=== PATIENT | female | born 1980 | race Caucasian/White ===

== ENCOUNTER 2024-06-07 11:50 | Emergency (ER) | payer OTHER, SELFPAY ==
[2024-06-07 11:51] VITALS: BP 148/104
[2024-06-07 12:17] LABS: % Basophils 0.8 % (0-2); % Eosinophils 2.1 % (0-6); % Immature Granulocytes 0.2 % (0-0.5); % Lymphocytes 22.8 % (20.5-51.1); % Monocytes 7.8 % (1.7-9.3); % Neutrophils 66.3 % (42.2-75.2); Absolute Eosinophils 0.1 10^3/uL (0-0.7); Absolute Lymphocytes 1.2 10^3/uL (1.2-3.4); Absolute Monocytes 0.4 10^3/uL (0.1-0.6); Absolute Neutrophils 3.4 10^3/uL (1.4-6.5); Hematocrit 42.8 % (37.0-47.0); Hemoglobin 15.4 g/dL (12.0-16.0); Mean Corpuscular Hgb 30.3 pg (27.0-31.0); Mean Corpuscular Volume 84.1 fL (81.0-99.0); Mean Platelet Volume 9.5 fL (7.4-10.4); Nucleated Red Blood Cells % 0 %; Platelet Count 261 10^3/uL (130-400); Red Blood Cell Count 5.09 10^6/uL (4.20-5.40); Red Cell Dist. Width 12.5 % (11.5-14.5); White Blood Cell Count 5.1 10^3/uL (4.8-10.8)
--- NOTE | 2024-06-07 12:41 | ED.GENMED ---
History of Present Illness
General
Chief Complaint: Eye Problems
Source: patient
Exam Limitations: none
Time Seen by Provider: 06/07/24 12:30
History of Present Illness
History of Present Illness:
See MDM
Past History
Past History
ED Past Medical History: None; Negative Asthma, HTN, Hypercholesterolemia or NIDDM
ED Past Surgical History: Appendectomy and Gynecological (Tubel)
Social History
Tobacco: Smoker
Alcohol: None
Personal: Single
Living: with family
Phy Exam
Physical Exam
Physical Exam:
See MDM
Course
Orders/Labs/Results
Orders:
Orders
06/07/24 11:57
Electrocardiogram (*1) Urgent
Reason for Study: Shortness of Breath
EKG- Treatment ONCE
Test Result ONCE
06/07/24 12:05
Complete Blood Count/With Diff Urgent
Comprehensive Metabolic Panel Urgent
HCG, Serum Qualitative Screen Urgent
NT-proBNP Urgent
TSH Reflex To Free T4 Urgent
Troponin I Urgent
06/07/24 12:40
Visual Acuity- Treatment ONCE
06/07/24 12:41
CT Head W/o Iv Contrast Urgent
Comment:
Reason For Exam: headache
06/07/24 12:53
Ketorolac [Toradol] 30 mg IM NOW STA
Abnormal Lab Results
06/07/24
12:05
Carbon Dioxide 21 L mmol/L
(22-30)
Glucose 124 H mg/dl
(70-99)
06/07/24 12:05
06/07/24 12:05
Vital Signs
Initial and Last Documented VS:
Initial Vital Signs
Temp Pulse Resp BP Pulse Ox
98.2 F 115 16 148/104 98
06/07/24 11:51 06/07/24 11:51 06/07/24 11:51 06/07/24 11:51 06/07/24 11:51
Last Documented Vital Signs
Temp Pulse Resp BP Pulse Ox
98.2 F 115 16 148/104 98
06/07/24 11:51 06/07/24 11:51 06/07/24 11:51 06/07/24 11:51 06/07/24 11:51
MDM/Problems Addressed
Differential Diagnosis Includes:
HPI and MDM Narrative:
43-year-old female presenting for evaluation of headaches and visual complaints. Patient states this has been going on since Friday. She is denying blurry vision. When I asked her what her concern about her vision is, she responds 'my vision is
too vivid'. Patient states she can see things to clearly. Patient does seem visibly upset. She believes that there is something wrong. Patient does have a history of migraines but denies visual issues with it. Will obtain visual acuity but
pupils appear equal and reactive. Conjunctiva appears injected but she is rubbing her eyes. Will obtain CT head given her complaints and will obtain basic blood work. Patient does acknowledge that she wanted to make sure she is not having a
stroke or something catastrophic
Physical exam
General: Well appearing and non-toxic
HEENT: protecting airway. Pupils are equal and reactive. EOMI. Sclera injected bilaterally
Neck: supple
CV: No evidence of cyanosis
Resp: No accessory muscle use
Abd: Non-distended. Soft and nontender
Extremities: No deformities. No leg edema noted
Neuro: alert
Psych: anxious and upset
Skin: Intact
Problems Addressed including Acute and Chronic Conditions affecting care:
1. Headache
Acuity: acute
Prognosis: stable
Details: Will obtain CT head and give Toradol
2. Visual complaint
Acuity: acute
Prognosis: stable
Details: Will obtain visual acuity
Updates
1:15 PM nursing indicating that vision is 20/[address] head negative. Blood work negative. Discussed having her symptoms further evaluated by her primary care
Differential Diagnosis (but not limited to): Complicated migraine, conjunctivitis, hypothyroidism
Testing considered: Urinalysis
Drug therapy (if applicable): OTC meds, please see d/c instruction regarding Rx drugs
Amount and/or Complexity of Data Reviewed
Clinical info obtained from: Patient
External data reviewed: N/A
Labs I independently reviewed (but not limited to): White blood cell count normal
Radiology: The CT scan was personally and independently reviewed. In addition, official CT report reviewed.
Pulse Ox: not hypoxic
EKG independently reviewed: N/A
Balance Staff Staker: N/A
Critical Care: N/A
Risk of Complication:
Social Determinants of health: Good social support
Discussed with other providers: N/A
Escalation of Care includes Admit/Obs: After being observed in the Emergency Department, pt stable for discharge.
Occasional wrong word or 'sound a like' substitutions may have occurred due to the inherent limitations of voice recognition software. Read the chart carefully and recognize, using context, where substitutions have occurred.
*Critical Care Note
Total Time (30-74mins, 75-104mins- exclusive of procedures): Not Applicable
ED Attending Note
-
Portions of this chart may have been created with voice recognition software.� Occasional wrong word or��sound alike� substitutions may have occurred due to the inherent limitations of voice recognition software.
Discharge Plan
Departure
Patient Disposition: Home (Routine Discharge)
Date of Disposition: 06/07/24
Time of Disposition: 15:01
Patient with high blood pressure during this ER visit?: Yes
Discharge Problem:
Headache
Instructions: BLOOD PRESSURE
Prescriptions:
New
mnakmjkyrp-[id number] [Fioricet] 50-300-40 mg capsule
1 cap PO TID PRN (Reason: headache) Qty: 10 0RF
No Action
aspirin 325 MG tablet
650 mg PO Q6H
cefuroxime axetil 500 MG tablet
500 mg PO BID Qty: 20 0RF
Referrals:
Yumiko Melendez PA [Family Provider] -
Activity Restrictions/Additional Instructions:
Please return for any worsening symptoms.
You may return at any time if you have further concerns.
Please follow up with your doctor at the first available appointment, preferably this week.
Please make an appointment to see the bilingual legal assistant.
Thank you for choosing [facility].
Interventions
Interventions:
*Risk Screen - Suicide Last Done: 06/07/24 11:51
*Neglect/Abuse Screening Last Done: 06/07/24 11:51
Discharge Date and Time
Print Language: CHINESE
[2024-06-07 12:44] LABS: HCG, Serum Qualitative Screen Negative; NT-proBNP < 20.0 pg/ml; Troponin I < 0.012 ng/ml
[2024-06-07 12:45] LABS: ALT (SGPT) 17 U/L (0-35); AST (SGOT) 23 U/L (14-36); Albumin 4.8 g/dl (3.5-5.0); Alkaline Phosphatase 61 U/L (38-126); Blood Urea Nitrogen 17 mg/dl (7-17); Calcium 9.8 mg/dl (8.4-10.2); Carbon Dioxide 21 mmol/L (22-30); Chloride 104 mmol/L (98-107); Glucose 124 mg/dl (70-99); Potassium 3.7 mmol/L (3.5-5.1); Sodium 139 mmol/L (135-145); Total Bilirubin 0.6 mg/dl (0.2-1.3); Total Protein 7.8 g/dl (6.3-8.2); eGFR > 60.00
[2024-06-07] MEDS: TORADOL 30 MG IM (12:56)
[2024-06-07 13:00] VITALS: BP 132/85
[2024-06-07 13:15] LABS: TSH Reflex To Free T4 1.07 uIU/ml (0.47-4.68)
[2024-06-07 15:11] VITALS: BP 113/76
== END 2024-06-07 15:14 | disposition home or self-care (01) ==
LOC: EMR 11:50
PROVIDERS: Emergency Medicine; EMERGENCY PHYSICIAN Student in an Organized Health Care Education/Training Program; FAMILY PHYSICIAN Family Medicine
DX: R51.9 Headache, unspecified (principal)
CPT/HCPCS: 96372; 99284; 70450; 80053; 83880; 84443; 84484; 84703; 85025; 93005

== ENCOUNTER → 2025-02-11 11:53 | Outpatient (REF) | payer OTHER, SELFPAY | LOC: RAD 11:53 | PROVIDERS: ATTENDING PHYSICIAN Psychiatry & Neurology Neurology; FAMILY PHYSICIAN Family Medicine | DX: R42 Dizziness and giddiness (principal) | CPT/HCPCS: 70496; 70498; Q9967 ==

== ENCOUNTER → 2025-07-06 14:49 | Outpatient (REF) | payer OTHER, SELFPAY | LOC: REG 14:49 | PROVIDERS: ATTENDING PHYSICIAN Family Medicine | DX: M25.50 Pain in unspecified joint (principal); M19.042 Primary osteoarthritis, left hand; M19.041 Primary osteoarthritis, right hand | CPT/HCPCS: 73130; 73564 ==